=== PATIENT | male | born 1955 | race Caucasian/White ===

== ENCOUNTER 2018-03-02 18:14 | Emergency (ER) | payer BC ==
[~2018-03-02] VITALS: Ht 182.9 cm; Wt 92.1 kg
--- NOTE | 2018-03-02 18:27 | NUR ---
Note gia in EDM - 03/02/18 at 1850 by [email or web address] Patient to bed Abbi ramires for evaluation. Side rails up.
[2018-03-02 18:36] VITALS: BP_SYST 152
--- NOTE | 2018-03-02 18:43 | NUR ---
Patient to ER bed 08 to gown for evaluation. Side rails up.
--- NOTE | 2018-03-02 18:49 | NUR ---
Pt AAOx4 ambulated into ED c/o 5/10 L sided abdominal pain x this morning. PT was seen at urgent care and was diagnosed with diverticulitis and rx of flagyl and cipro, but was advised to start abx later tonight as he had consumed alcohol last night and to come to ED if pain worsened. Pt reports increase in pain, denies taking pain medication. Pt denies N/V/D/dysuria. No other injuries/complaints per pt/noted. at bedside. Will continue to monitor.
--- NOTE | 2018-03-02 19:12 | NUR ---
Patient taken to xray
[2018-03-02 19:15] LABS: BILIRUBIN,URINE NEGATIVE (NEGATIVE); BLOOD, URINE NEGATIVE (NEGATIVE); CLARITY/URINE CLEAR (CLEAR); COLOR,URINE YELLOW (YELLOW); GLUCOSE,URINE NEGATIVE (NEGATIVE); KETONES,URINE NEGATIVE (NEGATIVE); LEUKOCYTE ESTERASE ,URINE NEGATIVE (NEGATIVE); NITRITE, URINE NEGATIVE (NEGATIVE); PROTEIN URINE NEGATIVE (NEGATIVE); UROBILINOGEN,URINE 0.2 (0.2-1.0)
--- NOTE | 2018-03-02 19:43 | NUR ---
ER at bedside examining patient.
[2018-03-02] MEDS ORDERED: KETOROLAC TROMETHAMINE 30 MG VIAL IVP ONE (20:00)
[2018-03-02] MEDS ORDERED: NACL 0.9% 1,000 ML IV ONE (20:00)
--- NOTE | 2018-03-02 20:00 | NUR ---
# 22 gauge angiocath placed to left forearm. Use of asceptic technique. Opsite placed over site. Blood return noted. Blood for lab drawn from site. Flushed with 10 cc of normal saline. No evidence of infiltration noted. Patient tolerated well.
[2018-03-02 20:32] LABS: BASOPHILS # (AUTO) 0.1 K/uL (0.0-0.2); BASOPHILS % (AUTO) 0.7 % (0.0-2.0); EOSINOPHILS # (AUTO) 0.1 K/uL (0.0-0.4); EOSINOPHILS % (AUTO) 1.1 % (0.0-4.0); HEMATOCRIT 47.1 % (36-54); LYMPHOCYTES % (AUTO) 21.7 % (20.5-51.5); MEAN CORPUSCULAR HEMOGLOBIN 31 pg (27-31); MEAN CORPUSCULAR HGB CONC 34 % (32-36); MEAN CORPUSCULAR VOLUME 90 fL (79.0-98.0); MONOCYTES # (AUTO) 0.4 K/uL (0.0-1.0); MONOCYTES % (AUTO) 3.8 % (1.7-9.3); NEUTROPHILS # (AUTO) 6.8 K/uL (1.8-7.7); NEUTROPHILS % (AUTO) 72.7 % (40.0-70.0); PLATELET COUNT (AUTO) 239 K/uL (130-430); RED BLOOD CELL COUNT(AUTO) 5.22 MIL/uL (4.2-6.2); RED CELL DISTRIBUTION WIDTH 12.5 % (9.0-15.0); WHITE BLOOD COUNT (AUTO) 9.4 K/uL (4.8-10.8)
--- NOTE | 2018-03-02 20:32 | NUR ---
Patient taken to CT for Abdomen and pelvis
[2018-03-02 20:37] LABS: CALCIUM 9.7 mg/dL (8.4-11.0); CREATININE 0.84 mg/dL (0.55-1.30); POTASSIUM 3.9 mmol/L (3.5-5.1)
[2018-03-02 20:41] LABS: ALBUMIN 4.1 g/dL (3.4-4.8); TOTAL BILIRUBIN 0.5 mg/dL (0.0-1.0)
--- NOTE | 2018-03-02 20:41 | NUR ---
Patient arrived back from CT
--- NOTE | 2018-03-02 22:10 | NUR ---
ER at bedside examining patient.
[2018-03-02 22:18] VITALS: BP_SYST 142
--- NOTE | 2018-03-02 22:18 | NUR ---
Patient given written and verbal discharge instructions and verbalizes understanding. ER MD discussed with patient the results and treatment provided. Patient in stable condition. ID arm band removed. IV catheter removed intact and dressing applied, no active bleeding. Rx of Motrin 800mg given. Patient educated on pain management and to follow up with PMD. Pain Scale 0/10. Opportunity for questions provided and answered. Medication side effect fact sheet provided.
== END 2018-03-02 22:18 | disposition home or self-care (01) ==
LOC: SED 18:14
DX: K57.90 Diverticulosis of intestine, part unspecified, without perforation or abscess without bleeding (principal); R03.0 Elevated blood-pressure reading, without diagnosis of hypertension
CPT/HCPCS: 36415; 74021; 74176; 80053; 81003; 83690; 85025; 99284; J7030

== ENCOUNTER 2020-12-06 08:30 | Emergency (ER) | payer OTHER, SELFPAY ==
[~2020-12-06] VITALS: Ht 182.9 cm; Wt 95.3 kg
[2020-12-06 08:41] VITALS: BP_SYST 126
[2020-12-06 09:22] LABS: BASOPHILS % (AUTO) 0.2 % (0.0-2.0); EOSINOPHILS % (AUTO) 0.1 % (0.0-4.0); HEMATOCRIT 45.1 % (36-54); HEMOGLOBIN 15.5 g/dL (14.0-18.0); LYMPHOCYTES # (AUTO) 1.2 K/uL (1.0-5.5); LYMPHOCYTES % (AUTO) 9.1 % (20.5-51.5); MEAN CORPUSCULAR HEMOGLOBIN 31 pg (27-31); MEAN CORPUSCULAR HGB CONC 34 % (32-36); MEAN CORPUSCULAR VOLUME 89 fL (79.0-98.0); MONOCYTES # (AUTO) 0.7 K/uL (0.0-1.0); MONOCYTES % (AUTO) 5.8 % (1.7-9.3); NEUTROPHILS % (AUTO) 84.8 % (40.0-70.0); PLATELET COUNT (AUTO) 214 K/uL (130-430); RED BLOOD CELL COUNT(AUTO) 5.05 MIL/uL (4.2-6.2); RED CELL DISTRIBUTION WIDTH 14.5 % (9.0-15.0)
[2020-12-06 09:32] LABS: CALCIUM 9.5 mg/dL (8.4-11.0); CREATININE 0.9 mg/dL (0.55-1.30); POTASSIUM 3.7 mmol/L (3.5-5.1)
[2020-12-06 09:36] LABS: PROTHROMBIN TIME 10.2 SECS (9.5-12.5)
[2020-12-06 09:38] LABS: ALBUMIN 3.8 g/dL (3.4-4.8); TOTAL BILIRUBIN 0.9 mg/dL (0.0-1.0)
[2020-12-06 09:49] LABS: C-REACTIVE PROTEIN QUANT 10.1 mg/dL (0-0.5)
[2020-12-06 10:26] LABS: BILIRUBIN,URINE 1+ (NEGATIVE); COLOR,URINE YELLOW (YELLOW); GLUCOSE,URINE NEGATIVE (NEGATIVE); KETONES,URINE TRACE (NEGATIVE); LEUKOCYTE ESTERASE ,URINE NEGATIVE (NEGATIVE); NITRITE, URINE NEGATIVE (NEGATIVE); PROTEIN URINE TRACE (NEGATIVE); UROBILINOGEN,URINE 0.2 (0.2-1.0)
[2020-12-06] MEDS ORDERED: AMOX-423 PO (10:30)
[2020-12-06] MEDS ORDERED: IBUP-1971 PO (10:30)
[2020-12-06 10:32] LABS: BLOOD, URINE TRACE (NEGATIVE); CLARITY/URINE SLIGHTLY HAZY (CLEAR)
[2020-12-06 10:40] VITALS: BP_SYST 133
[2020-12-06 10:43] LABS: RBC,URINE 0-3 /HPF (0-3)
[2020-12-06 10:44] LABS: BACTERIA,URINE FEW /HPF (None Seen); WBC,URINE 0-3 /HPF (0-3)
[2020-12-06] MEDS ORDERED: IBUPROFEN 800 MG TABLET PO ONE (10:45)
[2020-12-06] MEDS ORDERED: AMOXICILLIN/CLAVULANATE POTASSIUM 875 MG TABLET PO ONE (10:45)
== END 2020-12-06 10:39 | disposition home or self-care (01) ==
LOC: SED 08:30
DX: K57.92 Diverticulitis of intestine, part unspecified, without perforation or abscess without bleeding (principal); Z20.822 Contact with and (suspected) exposure to COVID-19
CPT/HCPCS: 36415; 76376; 80053; 81000; 82150; 83605; 83690; 85025; 85610-TC; 85730-TC; 86140; 99284

== ENCOUNTER 2020-12-08 14:11 | Emergency (ER) | payer OTHER, SELFPAY ==
[~2020-12-08] VITALS: Ht 182.9 cm; Wt 93.0 kg
[~2020-12-08 14:11] MED LIST: AMOX-423 PO; IBUP-1971 PO
[2020-12-08 14:15] VITALS: BP_SYST 141
--- NOTE | 2020-12-08 14:15 | NUR ---
PT TRIAGED AND PLACED BACK TO TRIAGE ROOM, AWAITING OPEN ER BED.
--- NOTE | 2020-12-08 14:25 | NUR ---
DR MESSER OUT TO TRIAGE ROOM TO EVALUATE PT.
--- NOTE | 2020-12-08 14:30 | NUR ---
PT STATES HE WAS HERE A FEW DAYS AGO WITH DIVERTICULITIS AND HIGH WBC LEVEL. PT STATES HE IS HERE FOR RE-CHECK. PT STATES HE FEELS MUCH BETTER AND IS TAKING HIS ABX PRESCRIBED. PT STATES ONLY VERY SLIGHT PAIN TO LOWER ABD WHEN GETTING UP FROM A SITTING POSITION.
[2020-12-08 14:43] LABS: BASOPHILS % (AUTO) 0.3 % (0.0-2.0); EOSINOPHILS # (AUTO) 0.1 K/uL (0.0-0.4); EOSINOPHILS % (AUTO) 0.6 % (0.0-4.0); HEMATOCRIT 43.5 % (36-54); LYMPHOCYTES # (AUTO) 1.2 K/uL (1.0-5.5); LYMPHOCYTES % (AUTO) 9.5 % (20.5-51.5); MEAN CORPUSCULAR HEMOGLOBIN 31 pg (27-31); MEAN CORPUSCULAR HGB CONC 35 % (32-36); MEAN CORPUSCULAR VOLUME 90 fL (79.0-98.0); MONOCYTES # (AUTO) 0.9 K/uL (0.0-1.0); MONOCYTES % (AUTO) 7.2 % (1.7-9.3); NEUTROPHILS # (AUTO) 10.5 K/uL (1.8-7.7); NEUTROPHILS % (AUTO) 82.4 % (40.0-70.0); PLATELET COUNT (AUTO) 241 K/uL (130-430); RED BLOOD CELL COUNT(AUTO) 4.86 MIL/uL (4.2-6.2); RED CELL DISTRIBUTION WIDTH 14.1 % (9.0-15.0); WHITE BLOOD COUNT (AUTO) 12.8 K/uL (4.8-10.8)
[2020-12-08 14:56] LABS: CALCIUM 9.6 mg/dL (8.4-11.0); CREATININE 0.98 mg/dL (0.55-1.30); POTASSIUM 3.7 mmol/L (3.5-5.1)
[2020-12-08 15:09] LABS: ALBUMIN 3.1 g/dL (3.4-4.8); TOTAL BILIRUBIN 0.6 mg/dL (0.0-1.0)
[2020-12-08 15:40] LABS: C-REACTIVE PROTEIN QUANT 26.6 mg/dL (0-0.5)
--- NOTE | 2020-12-08 16:02 | NUR ---
DR MESSER OUT TO SPEAK WITH PT, AWAITING DISCHARGE PAPERS
--- NOTE | 2020-12-08 16:28 | NUR ---
Patient given written and verbal discharge instructions and verbalizes understanding. ER MD discussed with patient the results and treatment provided. Patient in stable condition. ID arm band removed. Rx of NONE given. Patient educated on pain management and to follow up with PMD. Pain Scale 0/10. Opportunity for questions provided and answered. Medication side effect fact sheet provided.
== END 2020-12-08 16:27 | disposition home or self-care (01) ==
LOC: SED 14:11
DX: K57.92 Diverticulitis of intestine, part unspecified, without perforation or abscess without bleeding (principal); Z79.899 Other long term (current) drug therapy
CPT/HCPCS: 36415; 80053; 82150; 83605; 83690; 85025; 86140; 99283

== ENCOUNTER 2020-12-10 14:06 | Emergency (ER) | payer OTHER ==
[~2020-12-10] VITALS: Ht 182.9 cm; Wt 93.0 kg
--- NOTE | 2020-12-10 14:08 | NUR ---
Patient triaged and placed in waiting room. VSS and patient appears in no acute distress at this time. Accompanied by self , awaiting available bed, and MD notified of need for MSE.
[2020-12-10 14:12] VITALS: BP_SYST 129
--- NOTE | 2020-12-10 14:15 | NUR ---
Pt brought by self , A&Ox4, pt presents to ER for follow up, pt states WBC was elevated and Dr Patel asked him to return to follow up, pt taking antibiotics, afebrile, pt states pain is improving , skin pink and warm, cap refill <3, respirations even and unlabored.
--- NOTE | 2020-12-10 14:23 | NUR ---
Dr. Patel to triage to evaluate pt status.
[2020-12-10 16:30] LABS: BASOPHILS % (AUTO) 0.3 % (0.0-2.0); EOSINOPHILS # (AUTO) 0.1 K/uL (0.0-0.4); EOSINOPHILS % (AUTO) 1.4 % (0.0-4.0); HEMATOCRIT 42.3 % (36-54); HEMOGLOBIN 14.5 g/dL (14.0-18.0); LYMPHOCYTES # (AUTO) 1.3 K/uL (1.0-5.5); LYMPHOCYTES % (AUTO) 18.2 % (20.5-51.5); MEAN CORPUSCULAR HEMOGLOBIN 31 pg (27-31); MEAN CORPUSCULAR HGB CONC 34 % (32-36); MEAN CORPUSCULAR VOLUME 90 fL (79.0-98.0); MONOCYTES # (AUTO) 0.6 K/uL (0.0-1.0); MONOCYTES % (AUTO) 8.4 % (1.7-9.3); NEUTROPHILS # (AUTO) 5.3 K/uL (1.8-7.7); NEUTROPHILS % (AUTO) 71.7 % (40.0-70.0); PLATELET COUNT (AUTO) 287 K/uL (130-430); RED BLOOD CELL COUNT(AUTO) 4.72 MIL/uL (4.2-6.2); RED CELL DISTRIBUTION WIDTH 13.9 % (9.0-15.0); WHITE BLOOD COUNT (AUTO) 7.3 K/uL (4.8-10.8)
[2020-12-10 16:53] LABS: CREATININE 0.94 mg/dL (0.55-1.30)
[2020-12-10 17:05] LABS: ALBUMIN 3.3 g/dL (3.4-4.8); TOTAL BILIRUBIN 0.2 mg/dL (0.0-1.0)
[2020-12-10 17:07] VITALS: BP_SYST 129
--- NOTE | 2020-12-10 17:08 | NUR ---
Patient given written and verbal discharge instructions and verbalizes understanding. ER MD discussed with patient the results and treatment provided. Patient in stable condition. ID arm band removed. No Rx given. Patient educated on pain management and to follow up with PMD. Pain Scale 0/10. Opportunity for questions provided and answered. Medication side effect fact sheet provided.
== END 2020-12-10 17:08 | disposition home or self-care (01) ==
LOC: SED 14:06
DX: K57.92 Diverticulitis of intestine, part unspecified, without perforation or abscess without bleeding (principal); Z79.899 Other long term (current) drug therapy
CPT/HCPCS: 36415; 80053; 85025; 99283

== ENCOUNTER 2022-06-20 15:38 | Emergency (ER) | payer OTHER ==
[~2022-06-20] VITALS: Ht 182.9 cm; Wt 96.2 kg
[2022-06-20 15:48] VITALS: BP_SYST 143
--- NOTE | 2022-06-20 15:53 | NUR ---
Pt C/O 5/10 epigastric pain that started after he had breakfast. Pt states the pain stopped but returned and he had lunch. Hx HTN, HLD. NKDA AOX4 VSS Able to make needs known Pt placed in waiting room at this time
--- NOTE | 2022-06-20 19:36 | NUR ---
Patient placed in ER BED 7 for evaluation. Bed in lowest position with siderails up. Instructed to notify ED staff for any changes in condition or worsening of symptoms. Patient verbalized understanding.
[2022-06-20 19:45] LABS: BASOPHILS % (AUTO) 0.4 % (0.0-2.0); EOSINOPHILS % (AUTO) 0.2 % (0.0-4.0); HEMATOCRIT 48.8 % (36-54); HEMOGLOBIN 16.5 g/dL (14.0-18.0); LYMPHOCYTES # (AUTO) 1.1 K/uL (1.0-5.5); LYMPHOCYTES % (AUTO) 11.2 % (20.5-51.5); MEAN CORPUSCULAR HEMOGLOBIN 31 pg (27-31); MEAN CORPUSCULAR HGB CONC 34 % (32-36); MEAN CORPUSCULAR VOLUME 91 fL (79.0-98.0); MONOCYTES # (AUTO) 0.5 K/uL (0.0-1.0); NEUTROPHILS # (AUTO) 8.5 K/uL (1.8-7.7); NEUTROPHILS % (AUTO) 83.2 % (40.0-70.0); PLATELET COUNT (AUTO) 235 K/uL (130-430); RED BLOOD CELL COUNT(AUTO) 5.37 MIL/uL (4.2-6.2); WHITE BLOOD COUNT (AUTO) 10.2 K/uL (4.8-10.8)
--- NOTE | 2022-06-20 20:01 | NUR ---
Dr. ANDERS at bedside examining the patient.
[2022-06-20 20:03] LABS: CALCIUM 9.9 mg/dL (8.4-11.0); CREATININE 0.93 mg/dL (0.55-1.30)
[2022-06-20 20:07] LABS: ALBUMIN 4.3 g/dL (3.4-4.8); TOTAL BILIRUBIN 1.1 mg/dL (0.0-1.0)
--- NOTE | 2022-06-20 20:29 | NUR ---
emergency veterinary technician at bedside.
[2022-06-20 20:57] VITALS: BP_SYST 138
--- NOTE | 2022-06-20 20:59 | NUR ---
Patient given written and verbal discharge instructions and verbalizes understanding. ER MD discussed with patient the results and treatment provided. Patient in stable condition. ID arm band removed. NO Rx given. Patient educated on pain management and to follow up with PMD. Pain Scale 0/10. Opportunity for questions provided and answered. Medication side effect fact sheet provided.
[2022-06-20 21:19] LABS: BILIRUBIN,URINE NEGATIVE (NEGATIVE); BLOOD, URINE NEGATIVE (NEGATIVE); CLARITY/URINE CLEAR (CLEAR); COLOR,URINE YELLOW (YELLOW); GLUCOSE,URINE NEGATIVE (NEGATIVE); KETONES,URINE 2+ (NEGATIVE); LEUKOCYTE ESTERASE ,URINE NEGATIVE (NEGATIVE); NITRITE, URINE NEGATIVE (NEGATIVE); PH,URINE 7.5 (5.0-8.0); PROTEIN URINE NEGATIVE (NEGATIVE); UROBILINOGEN,URINE 0.2 (0.2-1.0)
== END 2022-06-20 20:57 | disposition home or self-care (01) ==
LOC: SED 15:38
DX: D64.9 Anemia, unspecified (principal); R10.13 Epigastric pain; Z79.899 Other long term (current) drug therapy
CPT/HCPCS: 36415; 76700-TC; 80053; 81003; 82150; 83690; 85025; 99284